=== PATIENT | male | born 1995 | race Hispanic/Latino ===

== ENCOUNTER → 2023-10-12 | Day surgery (SDC) | payer OTHER ==
[~2023-10-12] VITALS: Ht 167.6 cm; Wt 67.7 kg
[~2023-10-12] MED LIST: DESC1TAB PO; LIDOCAINE 2% 100MG/5ML SDV (FOR ANES.) As Ordered ONE; MIDAZOLAM INJ 2MG/2ML VIAL As Ordered ONE; ONDANSETRON 4MG 2ML VIAL As Ordered ONE; fentaNYL 100 MCG/2 ML INJECTION As Ordered ONE; propofoL 200 MG/20 ML VIAL As Ordered ONE
[2023-10-12] MEDS: LR 1,000 ML IV SCH (06:30)
[2023-10-12 08:30] VITALS: BP 123/74; TEMP 97.1; O2SAT 99
== END | disposition home or self-care (01) ==
LOC: M SDC 06:00
PROVIDERS: ATTEND Orthopaedic Surgery
DX: M79.A21 Nontraumatic compartment syndrome of right lower extremity (principal); M79.A22 Nontraumatic compartment syndrome of left lower extremity
CPT/HCPCS: 20950; J0665; J2250; J3010